=== PATIENT | female | born 1975 | race Caucasian/White ===

== ENCOUNTER 2016-11-06 11:17 | Day surgery (SDC) | payer BC ==
[~2016-11-06] VITALS: Ht 160 cm; Wt 89.6 kg
[2016-11-06 12:10] VITALS: Ht 160 cm; Wt 89.6 kg
[2016-11-06] MEDS ORDERED: LIDOCAINE 2% (SDV) 5 ML INJ ONE (12:10)
[2016-11-06] MEDS ORDERED: PROPOFOL 20 ML ONE (12:10)
[2016-11-06 12:15] VITALS: BP 125/72; PULSE 90; RESP 21
[2016-11-06 13:11] VITALS: BP 116/71; PULSE 71; RESP 20
--- NOTE | 2016-11-06 17:04 | GILP ---
DATE OF PROCEDURE: NAME OF PROCEDURE: Esophagogastroduodenoscopy and biopsy. SURGEON: Maria Alejandra Hurd MD PREOPERATIVE DIAGNOSES: 1. Gastroesophageal reflux disease. 2. Dysphagia. POSTOPERATIVE DIAGNOSES: 1. Reflux esophagitis. 2. Gastritis. 3. Pancreatic rest on the gastric antrum and biopsies were taken for histopathology. INDICATION FOR THE PROCEDURE: Ms. Melissa Armstrong is a 41-year-old female patient who had chronic h eartburn and dysphagia. The patient was scheduled for endoscopic examination for further evaluation . The procedure and possible complications were well explained to the patient. She understood and con sented to the procedure. DESCRIPTION OF PROCEDURE: Under the influence of anesthesia, the gastroscope was carefully introduc ed into the esophagus and under direct vision, it was advanced to the stomach and through the pyloru s into the duodenal bulb and descending duodenum. FINDINGS: ESOPHAGUS: The patient had reflux esophagitis. There was no stricture or tumor. STOMACH: The patient had gastritis. She also had small gastric polyps. She had pancreatic rest on the antrum and biopsies were taken for histopathology. DUODENUM: Normal. She tolerated the procedure very well and there was no complication from the procedure. At the end of the procedure, she was awake with stable vital signs and she was discharged home to the care of [facility]. IMPRESSION: 1. Reflux esophagitis. 2. No stricture or neoplasm was identified. 3. Gastritis. 4. Small gastric polyps. 5. Pancreatic rest on the antrum and biopsies were taken for histopathology. PLAN: 1. Nexium 24-hour p.o. q.a.m. 2. Await histopathology report. Dictated By: MARIA ALEJANDRA PLATT/NAA Conf#: [id number] DID#: [id number]
== END 2016-11-06 14:14 | disposition home or self-care (01) ==
LOC: GIL 11:17
PROVIDERS: ATTEND Internal Medicine Gastroenterology
DX: K21.0 Gastro-esophageal reflux disease with esophagitis (principal); K29.70 Gastritis, unspecified, without bleeding; K31.7 Polyp of stomach and duodenum; E66.9 Obesity, unspecified; Z68.35 Body mass index [BMI] 35.0-35.9, adult; Z88.0 Allergy status to penicillin
CPT/HCPCS: 43239; 84703; 88305; Z7610

== ENCOUNTER 2017-01-01 05:36 | Inpatient (IN) | payer BC ==
--- NOTE | 2016-12-31 09:50 | PREOPHP ---
DATE OF ADMISSION: 01/01/2017 The patient is to be admitted for a DONTE, possible BSO tomorrow morning 01/01/2017. CHIEF COMPLAINT: Excessive vaginal bleeding with clots. She was found to have multiple fibroids. HISTORY OF PRESENT ILLNESS: This is a 41-year-old female, 6, para 3 with a history of multi ple fibroids who has undergone a previous myomectomy in the past and section also. She has been bleeding excessively with flooding and clots and was found to have multiple uterine fibroids o n ultrasound. She is brought in for a total abdominal hysterectomy with possible bilateral salpingo -oophorectomy tomorrow on 01/01/2017. The alternatives, benefits, risks, and possible complications , particularly having had previous surgeries including pelvic organ injury during the procedure, hem orrhage and postop infection, possible thromboembolic phenomena were discussed in the office in [facility]. The patient was allowed to ask questions and all her questions were answered to her satis faction, and she signed the appropriate surgical informed consent. PAST MEDICAL HISTORY: The patient denies any medical problems including cardiovascular disease, hyp ertension, renal disease, liver disease, thyroid disease, or neurological problems. ALLERGIES: NO KNOWN ALLERGIES. MEDICATIONS: Takes only Abilify 5 mg p.o. daily on a regular basis. FAMILY HISTORY: Noncontributory. REVIEW OF SYSTEMS: A 12-point review of systems is noncontributory. PHYSICAL EXAMINATION: GENERAL: Well-developed, obese, in no distress, alert and oriented x3. Height of 5 feet 4 inches a nd weight of 204 pounds. BMI is 35. VITAL SIGNS: Showed temperature to be 98, blood pressure 118/75, respirations 16 per minute, pulse is 72 per minute regular. HEENT: Within normal limits. Pupils are PERRLA. NECK: Supple. Thyroid is not palpable. There is no lymphadenopathy present. BREASTS: Show no masses or lumps. LUNGS: Clear to percussion and auscultation. HEART: Regular sinus rhythm without murmur. ABDOMEN: Soft. There are no organomegalies. Obese. There are no hernias present. PELVIC: Normal external genitalia. Cervix is normal without lesions. Bimanual exam, there are mul tiple small fibroids present. No adnexal masses. EXTREMITIES: Lower extremities within normal limits. NEUROLOGIC: Also normal. IMPRESSION: 1. Excessive vaginal bleeding due to multiple fibroids. 2. History of prior multiple myomectomies. 3. Obesity. PLAN: The patient is to be admitted tomorrow 01/01/2017 for DONTE and possible BSO. Dictated By: OLIVA HERNANDEZ MD CR/NTS Conf#: [id number] DID#: [id number] CC: JASMINE ORTEGA MD;*EndCC*
[2016-12-31 10:14] VITALS: BMI 33.7
[2017-01-01] VITALS (31 sets, daily range): BP systolic 85–119; BP diastolic 37–72; PULSE 60–78; RESP 10–22; Ht 160 cm; Wt 93.2 kg
[~2017-01-01] VITALS: Ht 160 cm; Wt 93.2 kg
[2017-01-01] MEDS ORDERED: ARIP5TAB7 PO (06:22)
[2017-01-01] MEDS ORDERED: CLINDAMYCIN 900 MG/50 ML D5W IVPB IVPB ONE (07:00)
[2017-01-01] MEDS ORDERED: DESFLURANE 15 MIN ONE (07:00)
[2017-01-01] MEDS ORDERED: VASOPRESSIN 20 UNITS INJ ONE (07:20)
[2017-01-01] MEDS ORDERED: MIDAZOLAM 1 MG/ML 2 ML INJ ONE (07:31)
[2017-01-01] MEDS ORDERED: METOCLOPRAMIDE 10 MG INJ ONE (07:31)
[2017-01-01] MEDS ORDERED: ONDANSETRON 4 MG INJ ONE (07:31)
[2017-01-01] MEDS ORDERED: PROPOFOL 20 ML ONE (07:31)
[2017-01-01] MEDS ORDERED: DEXAMETHASONE 4 MG/ML 1 ML INJ ONE (08:10)
[2017-01-01] MEDS ORDERED: LIDOCAINE 2%/EPI 30 ML INJ ONE (08:18)
[2017-01-01] MEDS ORDERED: morphine SULFATE/PF (10 MG/10 ML) INJ ONE (08:22)
[2017-01-01] MEDS ORDERED: GENTAMICIN 80 MG INJ ONE (08:24)
[2017-01-01] MEDS ORDERED: EPHEDrine SULFATE 50 MG/5 ML SYG ONE (08:43)
[2017-01-01] MEDS ORDERED: NALOXONE (0.4 MG/ML) INJ IV PRN ×2 (09:30→10:30)
[2017-01-01] MEDS ORDERED: MEPERIDINE 25 MG INJ IV PRN (09:30)
[2017-01-01] MEDS ORDERED: HYDROmorphONE (0.2 MG/ML) 10ML SYG IV PRN ×3 (09:30)
[2017-01-01] MEDS ORDERED: ONDANSETRON 4 MG INJ IV PRN ×2 (09:30)
[2017-01-01] MEDS ORDERED: METOCLOPRAMIDE 10 MG INJ IV PRN (09:30)
[2017-01-01] MEDS ORDERED: HYDROmorphONE 1 MG/ML SYG IV PRN ×3 (09:30)
[2017-01-01] MEDS ORDERED: DIPHENHYDRAMINE 50 MG INJ IV PRN ×2 (09:30)
[2017-01-01] MEDS ORDERED: KETOROLAC 30 MG INJ ONE (09:39)
[2017-01-01] MEDS ORDERED: GLYCOPYRROLATE 1 MG INJ ONE (09:53)
[2017-01-01] MEDS ORDERED: NEOSTIGMINE 3 MG/3 ML SYRINGE ONE (09:53)
[2017-01-01] MEDS: LACTATED RINGER'S 1,000 ML IV SCH ×2 (10:01→18:34)
[2017-01-01] MEDS ORDERED: OXYCODONE/ACETAMINOPHEN (5/325) TAB PO PRN (10:30)
[2017-01-01] MEDS ORDERED: HYDROmorphONE 0.2 MG/ML PCA IV SCH (10:30)
[2017-01-01] MEDS ORDERED: ACETAMINOPHEN 325 MG TAB PO PRN (10:30)
[2017-01-01] MEDS: FENTAnyl 2MCG/ML-ROPIV 0.2% 100 ML BAG EPI SCH ×2 (10:53→22:12)
[2017-01-01] MEDS: metroNIDAZOLE 500 MG/NS (PMX) 100 ML IVPB SCH ×2 (10:59→17:45)
[2017-01-01] MEDS: KETOROLAC 30 MG INJ IV PRN (11:33)
--- NOTE | 2017-01-01 11:39 | OPR ---
DATE OF OPERATION: 01/01/2017 PREOPERATIVE DIAGNOSES: 1. Excessive vaginal bleeding. 2. Multiple fibroids. 3. Previous myomectomies. 4. Ovarian cyst. POSTOPERATIVE DIAGNOSES: 1. Excessive vaginal bleeding. 2. Multiple fibroids. 3. Previous myomectomies. 4. Ovarian cyst. 5. Large paratubal cyst on the left side. OPERATION PERFORMED: Total abdominal hysterectomy, bilateral salpingo-oophorectomy and lysis of adh esions. SURGEON: Oliva Carcamo MD RELIEF CAPTAIN: Ankit Haas MD ANESTHESIA: General. ANESTHESIOLOGIST: Sarah Farris MD ESTIMATED BLOOD LOSS: 200 mL COMPLICATIONS: None. SPECIMEN: Uterus, tubes, and ovaries. PROCEDURE AND FINDINGS: With the patient under general anesthesia with endotracheal intubation, shauna arambula on the table in the dorsal recumbent position. She had a De La Cruz catheter draining her bladder. e vagina was prepped with Betadine. The abdomen was prepped with ChloraPrep and after 3 minutes she was draped in the usual sterile fashion. A Pfannenstiel incision was carried out through all the l rizo of abdominal wall. There were adhesions in the pelvis that were lysed with scissors and caute ry. This was in order to access the uterus. The uterus was found to have multiple fibroids. There was a large paratubal cyst on the left side of about 5 cm. Then, the hysterectomy was started by c lamping the left round ligament with LigaSure, after cauterized it was cut. The same was done on e contralateral side. The infundibulopelvic ligament on the left side was identified and then secur ed with the LigaSure and cut. The same was repeated on the contralateral side. The uterine pedicle s were skeletonized. The bladder was dissected away from the uterine segment. The uterine vessels were clamped on the left side with a Cliff clamp, cut and sutured with 0 Vicryl. The same was done on the contralateral side. The cardinal ligament was then found and clamped with straight Cliff c lamp on the left side, cut and sutured with 0 Vicryl. The same was repeated on the contralateral si de. The uterosacral ligaments were secured with curved Cliff clamps, cut and sutured with 0 Vicryl . The vagina was entered and the specimen removed with scissors. The vaginal cuff was secured with several [id number] sutures of 0 Vicryl that were held for reference. The pelvis was thoroughl y washed with warm water. There was no active bleeding. The sutures were cut. The cuff was perito nealized with a running suture of 2-0 Vicryl. Good hemostasis was observed. All the packings were then removed from the patient's abdomen. The incision was closed in layers starting with the perito neum with continuous stitch of double 0 Vicryl. The fascia was closed with 2 convergent running sut ures of 0 Vicryl. Finally, the edges of skin were approximated with Insorb tomer. Sterile pressu re dressing was applied and the patient was taken to recovery room with all vital signs stable. EBL was 200 mL of blood. Needle, sponge and instrument count at the end of the procedure was correct t wice. Dictated By: OLIVA HUTCHINSON/NTS Conf#: [id number] DID#: [id number] CC: ANKIT HAAS MD;*EndCC*
[2017-01-01 11:53] LABS: HEMATOCRIT 26.8 % (37.0-47.0); HEMOGLOBIN 7.7 g/dl (12.0-16.0)
[2017-01-01] MEDS: ONDANSETRON 4 MG INJ IV PRN (19:03)
[2017-01-02] MEDS: LACTATED RINGER'S 1,000 ML IV SCH ×2 (00:20→16:32)
[2017-01-02] MEDS: metroNIDAZOLE 500 MG/NS (PMX) 100 ML IVPB SCH (02:30)
[2017-01-02] MEDS: ONDANSETRON 4 MG INJ IV PRN (02:31)
[2017-01-02 05:16] LABS: ADD SCAN DIFF NO
[2017-01-02 05:21] LABS: ABNORMAL IP MESSAGE 1; HEMATOCRIT 23.2 % (37.0-47.0); LYMPHOCYTES # 1.9 10^3/ul (0.8-2.9); LYMPHOCYTES % 17.6 % (15.0-51.0); MEAN CORPUSCULAR HEMOGLOBIN 23.5 pg (29.0-33.0); MEAN CORPUSCULAR HGB CONC 28.4 g/dl (32.0-37.0); MEAN CORPUSCULAR VOLUME 82.6 fl (82.0-101.0); MONOCYTE # 0.7 10^3/ul (0.3-0.9); NEUTROPHIL # 7.9 10^3/ul (1.6-7.5); NEUTROPHILS % 75.1 % (39.0-77.0); PLATELET COUNT 375 10^3/UL (140-415); RED BLOOD COUNT 2.81 10^6/ul (4.20-5.40); RED CELL DISTRIBUTION WIDTH 16.5 % (11.5-14.5); WHITE BLOOD COUNT 10.5 10^3/ul (4.8-10.8)
[2017-01-02 05:48] LABS: POTASSIUM 4.3 mmol/L (3.5-5.1)
[2017-01-02 05:51] LABS: CREATININE 0.59 mg/dl (0.44-1.00)
[2017-01-02 06:00] VITALS: BP 95/58; PULSE 70
[2017-01-02] MEDS ORDERED: PANTOPRAZOLE 40 MG INJ IV SCH (06:00)
[2017-01-02 06:25] LABS: HEMOGLOBIN 6.6 g/dl (12.0-16.0)
[2017-01-02] MEDS ORDERED: LACTATED RINGER'S 1,000 ML IV ONE (07:00)
--- NOTE | 2017-01-02 07:02 | QN ---
Documentation Comment called by RN due to low hemoglobin reported by lab. Hemoglobin 6.6. Patient is a status post hysterectomy.. I sent her to the patient bedside.. Patient comfortable in bed. Denies any shortness of breath or dizziness. Denies any lightheadedness or chest pain. Has a single epidural. Complains of fatigue. Patient reports history of menorrhagia prior to surgery. She reports her hemoglobin prior to surgery and prior to admission was 7. VSS Pulse rate within normal limits Abdomen: Soft, appropriate tenderness in the lower abdomen related to recent surgery Assessment Anemia, acute on chronic No clear evidence of postop bleeding Patient's vitals are stable and has adequate urine output After the patient blood transfusion risk and benefit of transfusion discussed with the patient including risk of blood borne infection including HIV hepatitis B and C and transfusion reactions. Patient desires to proceed. 2 units of. Packed blood cell available we will transfuse. We will watch the patient closely Consider repeat hemoglobin 8 hours after transfusion. RN advised to notify Dr. Carcamo . upcoming labors Dr. Borja will be assigned to follow up. JAKE MOLINA MD Jan 02, 2017 07:02
[2017-01-02] MEDS: KETOROLAC 30 MG INJ IV PRN ×2 (07:47→16:29)
[2017-01-02 08:22] VITALS: BP 113/57; RESP 18
--- NOTE | 2017-01-02 08:44 | PN ---
Date/Time of Note Date/Time of Note DATE: 01/02/17 TIME: 08:42 Assessment/Plan VTE Prophylaxis VTE Prophylaxis Intervention: ambulation, anti-embolic stocking Lines/Catheters IV Catheter Type (from Nrs): Peripheral IV Urinary Cath still in place: Yes Assessment/Plan Chief Complaint/Hosp Course Anemic.Will receive 2 units of blood today.DC epidural.Ambulate this afternoon. Problems: Assessment/Plan Transfuse and DC epidural.Encourage ambulation this afternoon. Exam/Review of Systems Vital Signs Vitals Vital Signs Date Time Temp Pulse Resp B/P Pulse Ox O2 Delivery O2 Flow Rate FiO2 01/02/17 08:22 97.7 59 18 113/57 100 01/01/17 15:30 Nasal Cannula 2.0 Intake and Output 01/01/17 01/01/17 01/02/17 15:00 23:00 07:00 Intake Total 2100 ml 1200 ml 1650 ml Output Total 520 ml 300 ml 1250 ml Balance 1580 ml 900 ml 400 ml Results Result Diagram: 01/02/17 0445 01/02/17 0445 Results 24 hrs Laboratory Tests Test 01/01/17 11:30 01/02/17 04:45 Hemoglobin 7.7 L 6.6 *L Hematocrit 26.8 L 23.2 L White Blood Count 10.5 Red Blood Count 2.81 L Mean Corpuscular Volume 82.6 Mean Corpuscular Hemoglobin 23.5 L Mean Corpuscular Hemoglobin Concent 28.4 L Red Cell Distribution Width 16.5 H Platelet Count 375 Mean Platelet Volume 10.0 Neutrophils % 75.1 Lymphocytes % 17.6 Monocytes % 7.0 Eosinophils % 0.0 Basophils % 0.0 Nucleated Red Blood Cells % 0.0 Neutrophils # 7.9 H Lymphocytes # 1.9 Monocytes # 0.7 Eosinophils # 0.0 Basophils # 0.0 Nucleated Red Blood Cells # 0.0 Sodium Level 138 Potassium Level 4.3 Chloride Level 104 Carbon Dioxide Level 27 Anion Gap 11 Blood Urea Nitrogen 12 Creatinine 0.59 Glucose Level 98 Calcium Level 8.0 L Medications Medications Current Medications Hydromorphone HCl (Dilaudid) 0.4 mg Q2H PRN IV PAIN LEVEL 6-10; Start 01/01/17 at 09:30 Diphenhydramine HCl (Benadryl) 25 mg Q4H PRN IV PRURITUS; Start 01/01/17 at 09: 30 Ondansetron HCl (Zofran Inj) 4 mg Q6H PRN IV NAUSEA AND/OR VOMITING; Start at 09:30 Naloxone HCl 0.2 mg 0.2 mg Q2M PRN IV FOR RESP RATE 8 OR LESS; Start 01/01/17 at 09:30 Lactated Ringer's (Lr) 1,000 ml @ 100 mls/hr Q10H IV Last administered on 01/02 00:20; Admin Dose 100 MLS/HR; Start 01/01/17 at 10:01 Acetaminophen (Tylenol Tab) 650 mg Q4H PRN PO PAIN LEVEL 1-5; Start 01/01/17 at 10:30 Ibuprofen (Motrin) 600 mg Q8H PRN PO PAIN AND OR ELEVATED TEMP; Start 01/04/17 at 10:30 Oxycodone/ Acetaminophen (Percocet (5/ 325)) 1 tab Q4H PRN PO PAIN LEVEL 6-10; Start 01/01/17 at 10:30 Ondansetron HCl (Zofran Inj) 4 mg Q6H PRN IV NAUSEA AND/OR VOMITING Last administered on 01/02/17 02:31; Admin Dose 4 MG; Start 01/01/17 at 10:30 Oxycodone/ Acetaminophen (Percocet (5/ 325)) 2 tab Q4H PRN PO PAIN; Start 01/01 at 10:30 Ketorolac Tromethamine (Toradol) 30 mg Q6H PRN IV PAIN Last administered on 07:47; Admin Dose 30 MG; Start 01/01/17 at 10:30; Stop 01/04/17 at 10:29 Pantoprazole (Protonix Iv) 40 mg DAILY@06 IV Last administered on 01/02/17 05: 42; Admin Dose 40 MG; Start 01/02/17 at 06:00 Naloxone HCl (Narcan) 0.2 mg Q2M PRN IV RR 8 BREATHS/MIN OR LESS; Start at 10:30 Hydromorphone HCl (Dilaudid [employer]) Q4PCA IV ; Start 01/01/17 at 10:30 Miscellaneous Information At 1200 on POD#1 decre... [employer] REFU[employer] IV ; Start 01/01/17 at 10:30 OLIVA HERNANDEZ MD Jan 02, 2017 08:44
--- NOTE | 2017-01-02 10:35 | RADRPT ---
Vent Rate: 59 bpm RR Interval: 0 msec MD Interval: 142 msec QRS Duration: 94 msec QT Interval: 432 msec QTC Interval: 427 msec P-R-T Bouse: 47 - 59 - 89 degrees Sinus bradycardia Nonspecific T wave abnormality Abnormal ECG Electronically Signed By: Casey Castellanos [id number]
[2017-01-02] MEDS: OXYCODONE/ACETAMINOPHEN (5/325) TAB PO PRN ×2 (14:28→23:32)
[2017-01-02 22:56] LABS: ADD SCAN DIFF NO
[2017-01-02 22:57] LABS: BASOPHILS % 0.3 % (0.0-2.0); EOSINOPHILS # 0.1 10^3/ul (0.0-0.5); EOSINOPHILS % 0.5 % (0.0-7.0); HEMATOCRIT 28.6 % (37.0-47.0); HEMOGLOBIN 8.6 g/dl (12.0-16.0); LYMPHOCYTES # 3.2 10^3/ul (0.8-2.9); LYMPHOCYTES % 27.6 % (15.0-51.0); MEAN CORPUSCULAR HEMOGLOBIN 25.2 pg (29.0-33.0); MEAN CORPUSCULAR HGB CONC 30.1 g/dl (32.0-37.0); MEAN CORPUSCULAR VOLUME 83.9 fl (82.0-101.0); MEAN PLATELET VOLUME 10.1 fl (7.4-10.4); MONOCYTE # 0.8 10^3/ul (0.3-0.9); MONOCYTES % 6.9 % (0.0-11.0); NEUTROPHIL # 7.3 10^3/ul (1.6-7.5); PLATELET COUNT 357 10^3/UL (140-415); RED BLOOD COUNT 3.41 10^6/ul (4.20-5.40); RED CELL DISTRIBUTION WIDTH 16.7 % (11.5-14.5); WHITE BLOOD COUNT 11.4 10^3/ul (4.8-10.8)
[2017-01-03] MEDS: LACTATED RINGER'S 1,000 ML IV SCH ×2 (00:48→11:53)
[2017-01-03] MEDS: KETOROLAC 30 MG INJ IV PRN ×2 (00:48→07:51)
[2017-01-03] MEDS ORDERED: PANTOPRAZOLE (EC) 40 MG TAB PO SCH (06:00)
[2017-01-03] MEDS: OXYCODONE/ACETAMINOPHEN (5/325) TAB PO PRN (07:00)
[2017-01-03 08:31] LABS: ADD SCAN DIFF NO
[2017-01-03 08:34] VITALS: BP 148/76; RESP 18
--- NOTE | 2017-01-03 08:34 | PN ---
Date/Time of Note Date/Time of Note DATE: 01/02/17 TIME: 11:30 anesthesia note: A41 year female s/p total abdominal hysterectomy pod 1 under GAand epidural. pt is doimg well no N/V, headache, itching. epidural is out catheter intact . Assessment/Plan VTE Prophylaxis VTE Prophylaxis Intervention: ambulation Lines/Catheters IV Catheter Type (from Nrsg): Peripheral IV Urinary Cath still in place: No Exam/Review of Systems Vital Signs Vitals Vital Signs Date Time Temp Pulse Resp B/P Pulse Ox O2 Delivery O2 Flow Rate FiO2 01/02/17 08:22 97.7 59 18 113/57 100 01/02/17 08:00 Nasal Cannula 2.0 Intake and Output 01/02/17 01/02/17 01/03/17 15:00 23:00 07:00 Intake Total 1000 ml 2020 ml 2190 ml Output Total 450 ml 1000 ml Balance 1000 ml 1570 ml 1190 ml Results Result Diagram: 01/02/17 2235 01/02/17 0445 Results 24 hrs Laboratory Tests Test 01/02/17 22:35 White Blood Count 11.4 H Red Blood Count 3.41 #L Hemoglobin 8.6 #L Hematocrit 28.6 #L Mean Corpuscular Volume 83.9 Mean Corpuscular Hemoglobin 25.2 L Mean Corpuscular Hemoglobin Concent 30.1 L Red Cell Distribution Width 16.7 H Platelet Count 357 Mean Platelet Volume 10.1 Neutrophils % 64.0 Lymphocytes % 27.6 Monocytes % 6.9 Eosinophils % 0.5 Basophils % 0.3 Nucleated Red Blood Cells % 0.0 Neutrophils # 7.3 Lymphocytes # 3.2 H Monocytes # 0.8 Eosinophils # 0.1 Basophils # 0.0 Nucleated Red Blood Cells # 0.0 Medications Medications Current Medications Lactated Ringer's (Lr) 1,000 ml @ 100 mls/hr Q10H IV Last administered on 01/03t 00:48; Admin Dose 100 MLS/HR; Start 01/01/17 at 10:01 Acetaminophen (Tylenol Tab) 650 mg Q4H PRN PO PAIN LEVEL 1-5; Start 01/01/17 at 10:30 Ibuprofen (Motrin) 600 mg Q8H PRN PO PAIN AND OR ELEVATED TEMP; Start 01/04/17 at 10:30 Oxycodone/ Acetaminophen (Percocet (5/ 325)) 1 tab Q4H PRN PO PAIN LEVEL 6-10; Start 01/01/17 at 10:30 Ondansetron HCl (Zofran Inj) 4 mg Q6H PRN IV NAUSEA AND/OR VOMITING Last administered on 01/02/17 02:31; Admin Dose 4 MG; Start 01/01/17 at 10:30 Oxycodone/ Acetaminophen (Percocet (5/ 325)) 2 tab Q4H PRN PO PAIN Last administered on 01/03/17 07:00; Admin Dose 2 TAB; Start 01/01/17 at 10:30 Ketorolac Tromethamine (Toradol) 30 mg Q6H PRN IV PAIN Last administered on 07:51; Admin Dose 30 MG; Start 01/01/17 at 10:30; Stop 01/04/17 at 10:29 Naloxone HCl (Narcan) 0.2 mg Q2M PRN IV RR 8 BREATHS/MIN OR LESS; Start at 10:30 Hydromorphone HCl (Dilaudid RAZOR GRINDER) Q4PCA IV ; Start 01/01/17 at 10:30 Miscellaneous Information At 1200 on POD#1 decre... RAZOR GRINDER IV ; Start 01/01/17 at 10:30 Simethicone (Mylicon) 80 mg QID PRN PO DISTENSION/GAS/BLOATING Last administered on 01/03/17 00:48; Admin Dose 80 MG; Start 01/02/17 at 12:00 Pantoprazole (Protonix Tab) 40 mg DAILY@06 PO Last administered on 01/03/17 05 :37; Admin Dose 40 MG; Start 01/03/17 at 06:00 CANDI RYAN MD Jan 03, 2017 08:34
[2017-01-03 08:36] LABS: BASOPHILS % 0.3 % (0.0-2.0); EOSINOPHILS # 0.1 10^3/ul (0.0-0.5); EOSINOPHILS % 1.2 % (0.0-7.0); HEMATOCRIT 31.6 % (37.0-47.0); HEMOGLOBIN 9.2 g/dl (12.0-16.0); LYMPHOCYTES # 2.5 10^3/ul (0.8-2.9); LYMPHOCYTES % 25.4 % (15.0-51.0); MEAN CORPUSCULAR HEMOGLOBIN 24.5 pg (29.0-33.0); MEAN CORPUSCULAR HGB CONC 29.1 g/dl (32.0-37.0); MEAN CORPUSCULAR VOLUME 84.3 fl (82.0-101.0); MEAN PLATELET VOLUME 9.7 fl (7.4-10.4); MONOCYTE # 0.6 10^3/ul (0.3-0.9); MONOCYTES % 6.3 % (0.0-11.0); NEUTROPHIL # 6.6 10^3/ul (1.6-7.5); NEUTROPHILS % 66.5 % (39.0-77.0); PLATELET COUNT 368 10^3/UL (140-415); RED BLOOD COUNT 3.75 10^6/ul (4.20-5.40); RED CELL DISTRIBUTION WIDTH 16.7 % (11.5-14.5); WHITE BLOOD COUNT 9.9 10^3/ul (4.8-10.8)
--- NOTE | 2017-01-03 09:13 | PD.PPDC ---
HORSE DOCTOR Discharge Instruction Diagnosis Final Diagnosis: Multiple uterine fibroids with excessive vag bleeding Condition Patient Condition: Good Diet Diet: Resume Regular Diet Activity/Restrictions Activity: Normal Activity May Shower Restrictions: No Exercising No Lifting No Driving Nothing in the Vagina No Gaylord Wound/Drain Care Instructions Wound/Drain Care Instructions: Keep clean and dry Follow-up Follow-up with Physician: 1, Week/Weeks Return to clinic for [employer] Instructions: Fever greater than 101 Worsening abdominal pain Excessive Vaginal Bleeding More than 2 pads per hour Unable to tolerate diet Surgical Instructions: Incisional Drainage Incisional Redness OLIVA HERNANDEZ MD Jan 03, 2017 09:13
[2017-01-03 10:01] VITALS: BP 130/80; PULSE 61; RESP 17
--- NOTE | 2017-01-03 10:48 | DS ---
DATE OF ADMISSION: 01/01/2017 DATE OF DISCHARGE: 01/03/2017 FINAL DIAGNOSES: 1. Multiple uterine fibroids. 2. Excessive vaginal bleeding. 3. Anemia. The patient required 2 units of blood transfusion after surgery. SUMMARY: This is a 41-year-old female, 3, para 3 with multiple fibroids and a long history of excessive bleeding and anemia. She was brought in for a total abdominal hysterectomy, bilateral salpingo-oophorectomy. She underwent this under epidural and general anesthesia with Dr. Farris . The bleeding during the procedure was minimal; however, she dropped her hemoglobin from 7.7 to 6. 6 and required 2 units of blood the following day. Her hemoglobin now is 9.2. She is tolerating fo od p.o. well. She is passing gas with no problem and is ambulatory. She desires to go home. She w as instructed to stay ambulatory, encouraging her to move around and continue to use a regular diet. She was prescribed Percocet and Motrin for pain to be used every 6 hours p.r.n. She was given printed instructions on how to care for herself for her incision. She was asked to michelle sepulveda an appointment for followup in the office in 1 week. She is discharged in good condition. Dictated By: OLIVA HERNANDEZ MD CR/NTS Conf#: [id number] DID#: [id number] CC: JASMINE ORTEGA MD;*EndCC*
[2017-01-04] MEDS ORDERED: IBUPROFEN 600 MG TAB PO PRN (10:30)
== END 2017-01-03 12:00 | disposition home or self-care (01) | DRG 743 ==
LOC: REC 05:36 → MS1 12:35
PROVIDERS: ADMIT Specialist; ATTEND Specialist
PROC: 0UT20ZZ Resection of Bilateral Ovaries, Open Approach (ICD-10-PCS; 2017-01-01)
PROC: 0UTC0ZZ Resection of Cervix, Open Approach (ICD-10-PCS; 2017-01-01)
PROC: 0UT70ZZ Resection of Bilateral Fallopian Tubes, Open Approach (ICD-10-PCS; 2017-01-01)
PROC: 0UT90ZZ Resection of Uterus, Open Approach (ICD-10-PCS; principal; 2017-01-01 07:30)
PROC: 30233N1 Transfusion of Nonautologous Red Blood Cells into Peripheral Vein, Percutaneous Approach (ICD-10-PCS; 2017-01-02)
DX: N92.0 Excessive and frequent menstruation with regular cycle (principal); E66.9 Obesity, unspecified; D25.1 Intramural leiomyoma of uterus; D25.2 Subserosal leiomyoma of uterus; Z68.36 Body mass index [BMI] 36.0-36.9, adult; D64.9 Anemia, unspecified; N83.209 Unspecified ovarian cyst, unspecified side; N83.8 Other noninflammatory disorders of ovary, fallopian tube and broad ligament
CPT/HCPCS: 36430; 80048; 85014; 85018; 85025; 86850; 86900; 86901; 86920; 87086; 88305; 93005; C9113; J1100; J1580; J1885; J2250; J2274; J2405; J2710; J2765; J3010; J7120; P9016